=== PATIENT | female | born 1985 | race Caucasian/White ===

== ENCOUNTER → 2018-03-12 09:32 | Outpatient (CLI) | payer OTHER, SELFPAY ==
[2018-03-12 11:31] LABS: T4 Free Direct 1.09 ng/dL (0.76-1.46); Thyroid Stim Hormone (TSH) 2.86 uIU/mL (0.358-3.74)
[2018-03-13 08:37] LABS: Vitamin D,25 Hydroxy 22.2 ng/mL (29.95-100.01)
[2018-03-13 14:07] LABS: Thyroid Peroxidase AB 7 IU/mL (0-34)
[2018-03-14 09:29] LABS: Thyroglobulin Antibody < 1.0 IU/mL (0.0-0.9)
[2018-03-15 12:57] LABS: HPV APTIMA, High Risk Negative (Negative)
== END ==
PROVIDERS: Visit Provider Obstetrics & Gynecology
DX: Z01.419 Encounter for gynecological examination (general) (routine) without abnormal findings (principal); Z12.4 Encounter for screening for malignant neoplasm of cervix; E55.9 Vitamin D deficiency, unspecified; E03.9 Hypothyroidism, unspecified
CPT/HCPCS: 36415; 82306; 84439; 84443; 84481; 86376; 86800; 88175; G0145

== ENCOUNTER → 2018-04-02 08:15 | Outpatient (CLI) | payer OTHER, SELFPAY ==
--- NOTE | 2018-04-02 08:28 | BI_ITS ---
MAMMOGRAPHY - BILATERAL SCREENING REASON FOR EXAM: Female, 33 years old. Routine annual screening examination. PERTINENT HISTORY: Mother with breast cancer. TECHNIQUE: Digital bilateral breast yunior (3D mammographic acquisition) in the CC and MLO projections. 2-D mediolateral oblique (MLO) and craniocaudad (CC) views of both breasts were obtained. CAD: Full Field Digital Mammography with Computer Added Detection was performed. COMPARISON: None. Baseline examination. FINDINGS: Breast Composition: The breasts are heterogeneously dense, which may obscure small masses. There is evidence of a retraction of the left alveolar nipple complex with thickening. Clinical correlation as well as a sonographic correlation recommended. No other significant abnormalities are identified. BI/SCREENING MAMM (CAD), BILAT IMPRESSION: Inversion of the left areolar nipple complex with thickening. Clinical correlation as well as sonographic evaluation recommended. ASSESSMENT CATEGORY: BIRADS Category 0: Incomplete. Need additional imaging evaluation. A letter regarding these results will be sent to the patient by the facility within 30 days. Approximately 10% of breast cancers are not detected by mammography. A normal mammogram should not delay biopsy of a clinically suspicious abnormality. [id number] Electronically Signed: Garcia Dejesus MD at 14:42 EDT Tel [phone], Service support ,
== END ==
PROVIDERS: Family Provider Family Medicine; PCP Family Medicine; Visit Provider Obstetrics & Gynecology
DX: Z12.31 Encounter for screening mammogram for malignant neoplasm of breast (principal)
CPT/HCPCS: 77063; 77067

== ENCOUNTER → 2018-04-18 07:57 | Outpatient (CLI) | payer OTHER, SELFPAY ==
--- NOTE | 2018-04-18 08:15 | US_ITS ---
STUDY: ULTRASOUND BREAST - LEFT REASON FOR EXAM: Female, 33 years old. Abnormal screening mammogram. TECHNIQUE: Axial and longitudinal images of the LEFT breast were performed with a high resolution ultrasound transducer. COMPARISON: Comparison is made with prior examination dated April 02, 2018. FINDINGS: LEFT Breast: The retroareolar region of the breast was examined by ultrasound. No solid or cystic mass lesion is seen. Clinical correlation is recommended. US/Breast Limited Unilateral IMPRESSION: No sonographic abnormality is seen. Clinical correlation is recommended. ASSESSMENT CATEGORY: BIRADS Category 2: Benign. A letter regarding these results will be sent to the patient by the facility within 30 days. Electronically Signed: Garcia Dejesus MD at 11:14 EDT Tel [phone], Service support ,
== END ==
PROVIDERS: Family Provider Family Medicine; PCP Family Medicine; Visit Provider Obstetrics & Gynecology
DX: R92.8 Other abnormal and inconclusive findings on diagnostic imaging of breast (principal)
CPT/HCPCS: 76642

== ENCOUNTER → 2018-04-23 13:29 | Outpatient (CLI) | payer OTHER, SELFPAY ==
[2018-04-23 16:03] LABS: Free T3 2.6 pg/mL (2.18-3.98); T4 Free Direct 1.13 ng/dL (0.76-1.46)
== END ==
PROVIDERS: Visit Provider Obstetrics & Gynecology
DX: E03.9 Hypothyroidism, unspecified (principal)
CPT/HCPCS: 36415; 84439; 84443; 84481

== ENCOUNTER → 2019-05-06 | Outpatient (CLI) | payer OTHER, SELFPAY ==
[2018-12-26 13:42] VITALS: BMI 25.4
[2019-05-06 14:33] LABS: Free T3 2.6 pg/mL (2.18-3.98); Thyroid Stim Hormone (TSH) 3.79 uIU/mL (0.358-3.74)
[2019-05-07 13:51] LABS: Prolactin 32.5 ng/mL
[2019-05-09 15:12] LABS: HPV APTIMA, High Risk Negative (Negative)
== END | disposition home or self-care (01) ==
LOC: WOBLAB 11:05
PROVIDERS: Visit Provider Obstetrics & Gynecology
DX: E03.9 Hypothyroidism, unspecified (principal); Z12.4 Encounter for screening for malignant neoplasm of cervix
CPT/HCPCS: 36415; 84146; 84439; 84443; 84481; 87624; 88175; G0145

== ENCOUNTER → 2019-12-23 13:28 | Outpatient (CLI) | payer OTHER, SELFPAY ==
[2019-07-03 14:09] VITALS: BMI 25.4
[2019-12-23 16:22] LABS: Prolactin 17.5 ng/mL
[2019-12-23 16:23] LABS: Vitamin D,25 Hydroxy 27.5 ng/mL
== END ==
PROVIDERS: PCP Family Medicine; Visit Provider Obstetrics & Gynecology
DX: E22.1 Hyperprolactinemia (principal); E55.9 Vitamin D deficiency, unspecified
CPT/HCPCS: 36415; 82306; 84146